=== PATIENT | male | born 1960 | race Caucasian/White ===

== ENCOUNTER 2017-03-16 02:02 | Emergency (ER) | payer BC ==
[2017-03-16] MEDS ORDERED: EPINEPHrine 1:10,000 1 MG/10 ML Syringe IVPUSH STA ×4 (02:41→02:42)
[2017-03-16] MEDS ORDERED: Sodium Bicarbonate 8.4% 50 MEQ/50 ML Syringe IVPUSH STA (02:43)
[2017-03-16] MEDS ORDERED: Magnesium Sulfate/Water 4 GM in Premix Bag 1 BAG IV STA (02:43)
[2017-03-16] MEDS ORDERED: Sodium Chloride 0.9% 1,000 ML IV ONE (02:45)
--- NOTE | 2017-03-16 03:02 | EDM.PDOC ---
ED HPI GENERAL MEDICAL PROBLEM - General Chief Complaint: CPR in Progress Stated Complaint: [facility] Time Seen by Provider: 03/16/17 02:30 Source of Information: Reports: EMS, Police History Limitations: Reports: Altered Mental Status - History of Present Illness INITIAL COMMENTS - FREE TEXT/NARRATIVE: The patient was arrested yesterday about 6pm. He was in violation of the 18/09 program. He was intoxicated and his blood alcohol was 0.158. He was complaining of being short of breath while in the [facility]. He was allowed to use his inhaler around 8pm. At 12:45 he was getting worse and they were checking on him every 15 minutes. At 1:15am he was doing okay. At about 1:30am he was not breathing and he did not have a pulse. CPR was started and when EMS arrived they continued their efforts. They continued CPR and defibrilated him once. They also gave him epi and amiodarone without any response. A Daniel airway was placed. When he arrived to the ER he was not responding and he was not breathing and he did not have a pulse. He has a history of alcoholism. He drinks daily. He has liver disease. He has a history of anemia, hypertension, GERD and chronic low back pain. He did not smoke. His says he was not eating lately and just drinking. Onset: Sudden Duration: Minutes: Improves with: Reports: None Worsens with: Reports: None Associated Symptoms: Reports: Shortness of Breath - Related Data Allergies Allergy/AdvReac Type Severity Reaction Status Date / Time Dairy Products Allergy Unknown Other Verified 08/25/15 18:29 Home Meds: Home Meds Losartan/Hydrochlorothiazide [Losartan-HCTZ 100-25 MG] 1 each PO DAILY 08/26/15 [History] Omeprazole 40 mg PO DAILY 08/26/15 [History] Biotin/FA/Vit C/Vit B Complex [Nephrocaps] 1 tab PO DAILY #30 tablet 08/29/15 [ Rx] Disulfiram 250 mg PO DAILY #60 tab 08/29/15 [Rx] Ferrous Sulfate 325 mg PO TIDMEALS #90 tablet 08/29/15 [Rx] Folic Acid 1 mg PO BEDTIME #30 tablet 08/29/15 [Rx] Simvastatin [Zocor] 40 mg PO BEDTIME #30 tablet 08/29/15 [Rx] Thiamine [Vitamin B-1] 100 mg PO BEDTIME #30 tablet 08/29/15 [Rx] Past Medical History Cardiovascular History: Reports: Hypertension Gastrointestinal History: Reports: GERD Musculoskeletal History: Reports: Back Pain, Chronic, Other (See Below) Other Musculoskeletal History: Hip pain in the last year, and back pain 6-8 months ago - Past Surgical History Head Surgeries/Procedures: Reports: None Cardiovascular Surgical History: Reports: None GI Surgical History: Reports: Appendectomy, Colonoscopy Other GI Surgeries/Procedures: Colonoscopy 2 yrs ago Musculoskeletal Surgical History: Reports: None Dermatological Surgical History: Reports: None Social & Family History - Family History Cardiac: Reports: Bypass Other Cardiac Family History: dad CABG x 3 OBGYN: Reports: - Tobacco Use Smoking Status *Q: Never Smoker Second Hand Smoke Exposure: No - Recreational Drug Use Recreational Drug Use: No ED ROS GENERAL - Review of Systems Review Of Systems: Unable To Obtain ED EXAM, CPR - Physical Exam Exam: See Below Limited By: Altered Mental Status General Appearance: Obtunded Eye Exam: Bilateral Eye: Other (Scleral ictiris) Ears: Normal External Exam Nose: Normal Inspection Throat/Mouth: Normal Inspection Head: Atraumatic, Normocephalic Respiratory Chest: Other (No respiratory effort. Patient has a daniel airway in and there is equal breath sounds) Cardiovascular: CPR In Progress GI/Abdominal Exam: Other (Abdomen distended) Skin Exam: Jaundice ED CPR PROCEDURES - Endotracheal Intubation ET Intubation Indication: Respiratory Failure, Cardiac Arrest Preparation: Suction, Balloon Tested, BVM Set Up, Difficult Airway Equip Airway Assessment: Profuse Secretions Pre-Oxygenation: Assisted with BVM, 100% FiO2 Placement: Orotracheal, Cuffed, Uncomplicated Placement Cords Visualized: Yes Number of Attempts: 1 Confirmed By: CO2 Indicator, Bilateral Breath Sounds Tube Secured By: By RT Course - Orders/Labs/Meds Orders: Active Orders 24 hr Category Date Time Status Magnesium Sulfate/Water [Magnesium Sulfate 4 GM in Med 03/16/17 02:43 Active Water 100 ML] 4 gm Premix Bag 1 bag IV ONETIME Sodium Chloride 0.9% [Normal Saline] 1,000 ml Med 03/16/17 02:45 Active IV ONETIME Medication Orders Magnesium Sulfate 4 gm/ Premix 100 mls @ 50 mls/hr IV ONETIME STA Stop: 03/16/17 04:42 Sodium Chloride (Normal Saline) 1,000 mls @ 999 mls/hr IV ONETIME ONE Stop: 03/16/17 03:45 Meds: Medications Generic Name Dose Route Start Last Admin Trade Name Freq PRN Reason Stop Dose Admin Magnesium Sulfate 4 gm/ Premix 100 mls @ 50 mls/hr 03/16/17 02:43 IV 03/16/17 04:42 ONETIME STA Sodium Chloride 1,000 mls @ 999 mls/hr 03/16/17 02:45 Normal Saline IV 03/16/17 03:45 ONETIME ONE Discontinued Medications Generic Name Dose Route Start Last Admin Trade Name Freq PRN Reason Stop Dose Admin Epinephrine HCl 1 mg 03/16/17 02:41 Epinephrine 1:10,000 IVPUSH 03/16/17 02:42 ONETIME STA Epinephrine HCl 1 mg 03/16/17 02:42 Epinephrine 1:10,000 IVPUSH 03/16/17 02:43 ONETIME STA Epinephrine HCl 1 mg 03/16/17 02:42 Epinephrine 1:10,000 IVPUSH 03/16/17 02:43 ONETIME STA Epinephrine HCl 1 mg 03/16/17 02:42 Epinephrine 1:10,000 IVPUSH 03/16/17 02:43 ONETIME STA Sodium Bicarbonate 50 meq 03/16/17 02:43 Sodium Bicarbonate 8.4% IVPUSH 03/16/17 02:44 ONETIME STA - Re-Assessments/Exams Free Text/Narrative Re-Assessment/Exam: 03/16/17 03:11 When the patient arrived a addis blue was called. The patient had an IV and CPR was in progress. There was a Kind airway in. He had equal breath sounds. We continued CPR and put the renu device on for compressions. He was in V-fib and we defibrilated him a few times and we gave him multiple doses of epi. We also gave him some sodium bicarb and magnesium. At one time it appeared he was in torsades. The patient was down a total fo 50minutes. He went into PEA. I do not think we will get him back. We stopped our efforts at 2:21am. [facility] came to [facility] the patient. Departure - Departure Time of Disposition: 02:21 Disposition: 20 Preliminary Cause of *Q: Cardiac Arrest Clinical Impression: Cardiac arrest, Respiratory arrest, Alcoholism, Jaundice Anemia Qualifiers: Anemia type: other cause Other causes of anemia: other cause, not classified Qualified Code(s): D64.89 - Other specified anemias Liver failure Qualifiers: Liver failure chronicity: chronic Hepatic coma status: without hepatic coma Qualified Code(s): K72.10 - Chronic hepatic failure without coma - Discharge Information Referrals: PCP,Unknown [Primary Care Provider] - Forms: ED Department Discharge - My Orders Last 24 Hours: My Active Orders 03/16/17 02:43 Magnesium Sulfate/Water [Magnesium Sulfate 4 GM in Water 100 ML] 4 gm Premix Bag 1 bag IV ONETIME 03/16/17 02:45 Sodium Chloride 0.9% [Normal Saline] 1,000 ml IV ONETIME - Assessment/Plan Last 24 Hours: My Active Orders 03/16/17 02:43 Magnesium Sulfate/Water [Magnesium Sulfate 4 GM in Water 100 ML] 4 gm Premix Bag 1 bag IV ONETIME 03/16/17 02:45 Sodium Chloride 0.9% [Normal Saline] 1,000 ml IV ONETIME
== END 2017-03-16 04:16 | disposition expired ==
LOC: JD.ED 02:02
DX: I46.9 Cardiac arrest, cause unspecified (principal); K72.10 Chronic hepatic failure without coma; F10.229 Alcohol dependence with intoxication, unspecified; D64.89 Other specified anemias; I10 Essential (primary) hypertension; Z79.899 Other long term (current) drug therapy; Y90.0 Blood alcohol level of less than 20 mg/100 ml
CPT/HCPCS: 31500; 36415; 80053; 82150; 84484; 85025; 92950; 96374; 96375; 99285; G0480; J0171; J3475; J7040